=== PATIENT | female | born 1970 | race Hispanic/Latino ===

== ENCOUNTER 2021-07-29 11:01 | Outpatient (CLI) | payer OTHER | END 2021-07-29 11:02 | disposition home or self-care (01) | LOC: CSHLAB 11:01 | PROVIDERS: ATTEND Student in an Organized Health Care Education/Training Program | DX: Z01.818 Encounter for other preprocedural examination (principal); N93.9 Abnormal uterine and vaginal bleeding, unspecified | CPT/HCPCS: 80053; 84703; 85027; 86850; 86900; 86901; 93005; 93010; U0003; U0005 ==

== ENCOUNTER 2021-08-03 08:48 | Day surgery (SDC) | payer OTHER ==
[2021-07-29 13:05] LABS: Hemoglobin 14.1 g/dL (12.0-15.5); Mean Corpuscular HGB CONC 33.4 g/dL (32.0-36.0); Mean Corpuscular Hemoglobin 28.1 pg (27.0-33.0); Mean Corpuscular Volume 84.1 fl (81.6-98.3); Mean Platelet Volume 11.5 fl (7.4-10.4); Platelet Count 333 10x3/uL (150-450); RBC Distribution Width 12.8 % (11.5-14.5); Red Blood Cell (RBC) Count 5.02 10x6/uL (3.90-5.03); White Blood Cell (WBC) Count 7.4 10x3/uL (3.5-10.5)
[2021-07-29 13:22] LABS: BHCG - Serum Negative (NEGATIVE); Pregs Control Background? CLEAR/WHITE (CLR/WHITE); Pregs Control Bar Appear? YES (CONTROL BAR)
[2021-07-29 13:24] LABS: ALT (SGPT) 20 U/L (8-55); AST (SGOT) 22 U/L (5-34); Albumin 4.8 g/dL (3.5-5.0); Alkaline Phosphatase 64 U/L (40-110); Anion Gap 14 mmol/L (10-20); BUN (Urea Nitrogen) 14 mg/dL (7.0-18.7); Calc. Creatinine Clearance 0 mL/min (70-130); Calcium 10.2 mg/dL (7.8-10.44); Carbon Dioxide 28 mmol/L (22-29); Chloride 102 mmol/L (98-107); Globulin 3.1 g/dL (2.4-3.5); Glucose 93 mg/dL (70-105); Potassium 4.2 mmol/L (3.5-5.1); Protein, Total 7.9 g/dL (6.0-8.3); Sodium 140 mmol/L (136-145)
[2021-08-02 10:01] VITALS: BMI 25.6
[2021-08-03] MEDS ORDERED: Gabapentin 300 MG CAP ONE (09:17)
[2021-08-03] MEDS ORDERED: Famotidine/PF 20 mg/2ml Vial ONE (09:17)
[2021-08-03] MEDS ORDERED: CeleCOXIB 100 MG CAP ONE (09:17)
[2021-08-03] MEDS ORDERED: Lidocaine 1% MPF 2 ML VIAL ONE (09:17)
[2021-08-03] MEDS ORDERED: EPINEPHrine 1 MG/ML AMP ONE (09:27)
[2021-08-03] MEDS ORDERED: Bupivacaine PF 0.5% 30 ML VIAL ONE (09:27)
[2021-08-03] MEDS ORDERED: Fentanyl 250 MCG/5 ML VIAL ONE (09:41)
[2021-08-03] MEDS ORDERED: PROPOFOL 20 ML ONE (09:41)
[2021-08-03] MEDS ORDERED: Rocuronium Bromide 10 MG/ML (10ML VIAL) ONE (09:42)
[2021-08-03] MEDS ORDERED: Lidocaine 1% PF 5 ML VIAL ONE ×2 (09:42)
[2021-08-03] MEDS ORDERED: Ondansetron PF 4 MG/2 ML Vial ONE (09:42)
[2021-08-03] MEDS ORDERED: Midazolam HCl 2 mg/2 ml Vial ONE ×2 (09:42→10:28)
[2021-08-03] MEDS ORDERED: Glycopyrrolate 0.2 MG/ML 5 ML SYRINGE ONE (09:42)
[2021-08-03] MEDS ORDERED: CEFAZOLIN 2 GM VIAL ONE (09:55)
[2021-08-03] MEDS ORDERED: HYDROcodone/Acetaminophen 5/325 mg Tablet ONE (15:06)
== END 2021-08-03 15:45 | disposition home or self-care (01) ==
LOC: CSHSDC 08:48
PROVIDERS: ATTEND Student in an Organized Health Care Education/Training Program
DX: D25.2 Subserosal leiomyoma of uterus (principal); N75.0 Cyst of Bartholin's gland; I10 Essential (primary) hypertension; Z79.899 Other long term (current) drug therapy; Z20.822 Contact with and (suspected) exposure to COVID-19
CPT/HCPCS: 80053; 84703; 85027; 86850; 86900; 86901; 88307; J0171; J0690; J2250; J2405; J2704; J3010; S0020; S0028; U0003; U0005